=== PATIENT | male | born 1940 | race Caucasian/White ===

== ENCOUNTER → 2016-05-19 | Outpatient (CLI) | payer MEDICARE | END | disposition home or self-care (01) | LOC: PCVCIMAG 15:40 | PROVIDERS: ATTEND Internal Medicine Cardiovascular Disease | DX: I25.10 Atherosclerotic heart disease of native coronary artery without angina pectoris (principal); E78.00 Pure hypercholesterolemia, unspecified; I10 Essential (primary) hypertension; I42.0 Dilated cardiomyopathy; R53.83 Other fatigue; I44.7 Left bundle-branch block, unspecified; I50.9 Heart failure, unspecified; R63.1 Polydipsia; Z95.810 Presence of automatic (implantable) cardiac defibrillator | CPT/HCPCS: 36415; 80061; 93306; G0463 ==

== ENCOUNTER → 2016-12-07 | Outpatient (CLI) | payer MEDICARE | END | disposition home or self-care (01) | LOC: PCVCCLINIC 11:48 | PROVIDERS: ATTEND Internal Medicine Cardiovascular Disease | DX: I50.9 Heart failure, unspecified (principal); I11.0 Hypertensive heart disease with heart failure; I42.0 Dilated cardiomyopathy; I44.7 Left bundle-branch block, unspecified; F32.9 Major depressive disorder, single episode, unspecified; I25.10 Atherosclerotic heart disease of native coronary artery without angina pectoris; E78.00 Pure hypercholesterolemia, unspecified; E66.9 Obesity, unspecified; Z95.810 Presence of automatic (implantable) cardiac defibrillator; Z79.82 Long term (current) use of aspirin | CPT/HCPCS: 80061; G0463 ==

== ENCOUNTER → 2017-06-12 | Outpatient (CLI) | payer MEDICARE | END | disposition home or self-care (01) | LOC: PCVCCLINIC 13:31 | DX: I25.10 Atherosclerotic heart disease of native coronary artery without angina pectoris (principal); I10 Essential (primary) hypertension; I42.0 Dilated cardiomyopathy; E78.00 Pure hypercholesterolemia, unspecified; R53.82 Chronic fatigue, unspecified; E66.9 Obesity, unspecified; Z95.810 Presence of automatic (implantable) cardiac defibrillator; Z79.82 Long term (current) use of aspirin; Z79.899 Other long term (current) drug therapy | CPT/HCPCS: 80061; 93284; G0463 ==

== ENCOUNTER → 2018-01-17 | Outpatient (CLI) | payer MEDICARE ==
--- NOTE | 2018-01-17 14:33 | PCVCIMAG ---
APPROVED REPORT Study performed: 01/17/2018 12:54:51 EXAM: Comprehensive 2D, Doppler, and color-flow Echocardiogram Patient Location: Echo lab Room #: 3Status: routine BSA: 2.28 HR: 82 bpmBP: 152/102 mmHg Rhythm: Pacemaker Other Information Study Quality: Fair Risk Factors: Cardiac Risk Factors: HTN, Hyperlipidemia Indications CAD Cardiomyopathy Fatigue 2D Dimensions IVSd: 13.88 (7-11mm)LVOT Diam: 27.87 (18-24mm) LVDd: 69.76 mm PWd: 12.35 (7-11mm)Ascending Ao: 43.10 (22-36mm) LVDs: 55.90 (25-40mm) Left Atrium: 36.00 (27-40mm) Aortic Root: 34.75 mm LV Single Plane 4CH: 21.27 % LV Single Plane 2CH: 10.45 % Biplane EF: 17.7 % Volumes Left Atrial Volume (Systole) Single Plane 4CH: 74.65 mLSingle Plane 2CH: 66.78 mL Biplane LA Volume: 76.00 mLLA ESV Index: 33.00 mL/m2 Aortic Valve AoV Peak Rolando.: 1.23 m/s AO Peak Gr.: 6.12 mmHgLVOT Max P.73 mmHg LVOT Max V: 0.66 m/s ARLINE Vmax: 3.27 cm2 AI Vmax: 5.23 m/s AI [place]: 3.52 m/s2 AI PHT: 434.99 ms Mitral Valve E/A Ratio: 0.3 MV Decel. Time: 57.09 ms MV E Max Rolando.: 0.40 m/s MV A Rolando.: 1.37 m/s MV PHT: 16.56 ms TDI E/Lateral E': 13.33E/Medial E': 13.33 Medial E' Rolando.: 0.03 m/s Lateral E' Rolando.: 0.03 m/s Pulmonary Valve PV Peak Rolando.: 0.61 m/sPV Peak Gr.: 1.50 mmHg Tricuspid Valve TR Peak Rolando.: 2.16 m/s TR Peak Gr.: 18.64 mmHg TV Vmax: 0.47 m/sPA Pressure: 26.00 mmHg Left Ventricle Left ventricle is severely dilated. Global severe hypokinesis. Septal akinesis. Borderline concentric left ventricular hypertrophy. Left ventricular systolic function is severely decreased. LVEF is 15-20%. The left ventricular diastolic function is abnormal. Right Ventricle The right ventricle is normal size. The right ventricular systolic function is normal. Atria The left atrium size is normal. Pacemaker lead is present in the right atrium. Aortic Valve Aortic valve is trileaflet. Moderate aortic regurgitation. There is no aortic valvular stenosis. Mitral Valve The mitral valve is normal in structure. Moderate mitral regurgitation. No evidence of mitral valve stenosis. Tricuspid Valve The tricuspid valve is normal in structure. Mild to moderate tricuspid regurgitation with a PA pressure of 26 mmHg. Pulmonic Valve The pulmonary valve is normal in structure. Trace pulmonic regurgitation. Great Vessels The aortic root is dilated in size. The ascending aorta is mildly dilated in size. Aortic arch is normal in caliber. IVC is normal in size and collapses >50% with inspiration. Pericardium There is no pericardial effusion. There is no pleural effusion. <Conclusion> Left ventricle is severely dilated. Borderline concentric left ventricular hypertrophy. Left ventricular systolic function is severely decreased. LVEF is 15-20%. The left ventricular diastolic function is abnormal. The right ventricle is normal size. The left atrium size is normal. Aortic valve is trileaflet. Moderate aortic regurgitation. Moderate mitral regurgitation. Mild to moderate tricuspid regurgitation with a PA pressure of 26 mmHg. The aortic root is dilated in size. The ascending aorta is mildly dilated in size. Aortic arch is normal in caliber. There is no pericardial effusion.
== END | disposition home or self-care (01) ==
LOC: PCVCIMAG 12:47
PROVIDERS: ATTEND Internal Medicine Cardiovascular Disease
DX: I08.3 Combined rheumatic disorders of mitral, aortic and tricuspid valves (principal); I25.10 Atherosclerotic heart disease of native coronary artery without angina pectoris; G50.0 Trigeminal neuralgia; I44.7 Left bundle-branch block, unspecified; I10 Essential (primary) hypertension; I42.0 Dilated cardiomyopathy; I25.5 Ischemic cardiomyopathy; E66.9 Obesity, unspecified; E78.5 Hyperlipidemia, unspecified; R53.83 Other fatigue; E78.00 Pure hypercholesterolemia, unspecified; Z91.19 Patient's noncompliance with other medical treatment and regimen; Z95.810 Presence of automatic (implantable) cardiac defibrillator
CPT/HCPCS: 36415; 80061; 93284; 93306; G0463

== ENCOUNTER → 2018-05-17 | Outpatient (CLI) | payer MEDICARE | END | disposition home or self-care (01) | LOC: PCVCCLINIC 16:21 | PROVIDERS: ATTEND Internal Medicine Cardiovascular Disease | DX: I42.0 Dilated cardiomyopathy (principal); I10 Essential (primary) hypertension; I25.10 Atherosclerotic heart disease of native coronary artery without angina pectoris; G50.0 Trigeminal neuralgia; E78.00 Pure hypercholesterolemia, unspecified | CPT/HCPCS: 36415; 80061; 93005; G0463 ==

== ENCOUNTER → 2018-05-18 | Outpatient (CLI) | payer MEDICARE | END | disposition home or self-care (01) | LOC: PCVCCLINIC 10:12 | PROVIDERS: ATTEND Internal Medicine Cardiovascular Disease | DX: Z48.812 Encounter for surgical aftercare following surgery on the circulatory system (principal); I50.9 Heart failure, unspecified; Z95.0 Presence of cardiac pacemaker | CPT/HCPCS: 36415; 80061; 93005; 93281; G0463 ==